=== PATIENT | female | born 1980 | race Caucasian/White ===

== ENCOUNTER → 2020-07-02 08:54 | Outpatient (CLI) | payer OTHER, SELFPAY ==
--- NOTE | ~2020-07-02 | MMUS_ITS ---
EXAMINATION: MM diagnostic sondra BI w jay, US breast BI complete HISTORY: Palpable breast lumps bilateral. TECHNIQUE: Additional 3-D tomosynthesis images of the breasts were performed and synthetic 2-D images were generated. CAD analysis was submitted and interpreted. High resolution bilateral complete breas t ultrasound was performed. COMPARISON: None BREAST PARENCHYMAL COMPOSITION: The breasts are heterogenously dense, which may obscure small masses. FINDINGS: MAMMOGRAPHIC FINDINGS: There are no suspicious masses, calcifications or architectural distortion in either breast to sugges t malignancy. ULTRASOUND: Right breast ultrasound: At 6:00, 5 cm from the nipple, there is a 4 mm cyst. Left breast ultrasound: At 3:00, 4 cm from the nipple, there is there is a 4 mm intramammary lymph no de. At 6:00, 3 cm from the nipple there is a 4 mm cyst. IMPRESSION: 1. No evidence for malignancy in either breast. 2. Routine yearly screening mammogram and regular clinical breast examination are recommended. BI-RADS Category 2: Benign finding(s). Reviewed, dictated and finalized at location A. [employer]ABRICATING IMPRESSION: 1. No evidence for malignancy in either breast. 2. Routine yearly screening mammogram and regular clinical breast examination a re recommended. BI-RADS Category 2: Benign finding(s).
== END ==
PROVIDERS: PCP Internal Medicine; Visit Provider Advanced Practice Midwife
DX: N60.11 Diffuse cystic mastopathy of right breast (principal)
CPT/HCPCS: 76641; 77062; 77066; G0279

== ENCOUNTER → 2021-09-05 09:59 | Outpatient (CLI) | payer OTHER, SELFPAY ==
--- NOTE | ~2021-09-05 | MM_ITS ---
EXAMINATION: MM screening sondra BI w jay HISTORY: Screening mammogram TECHNIQUE: Craniocaudal and mediolateral oblique 3-D tomosynthesis images were obtained and synthetic 2-D images were generated. CAD analysis was submitted and interpreted. COMPARISON: 07/02/2020 bilateral diagnostic mammogram and complete bilateral breast ultrasound examinat ion BREAST PARENCHYMAL COMPOSITION: There are scattered areas of fibroglandular density. FINDINGS: Stable 3.5 mm smaller circumscribed opacities in the upper outer quadrant of the left breas t. Stable right axillary tail circumscribed lymph nodes. Stable circumscribed approximately 5 mm opac ity in the posterior lower right breast on MLO view. There is no evidence of suspicious mass, calcifi cation, or architectural distortion to suggest malignancy in either breast. There has been no suspici ous interval change. IMPRESSION: 1. No mammographic evidence of malignancy. 2. Recommend routine screening mammography in one year. BI-RADS Category 2: Benign finding(s). Reviewed, dictated and finalized at location A.
== END ==
PROVIDERS: PCP Internal Medicine; Visit Provider Obstetrics & Gynecology
DX: Z12.31 Encounter for screening mammogram for malignant neoplasm of breast (principal)
CPT/HCPCS: 77063; 77067

== ENCOUNTER → 2022-10-02 07:09 | Outpatient (CLI) | payer OTHER, SELFPAY ==
--- NOTE | ~2022-10-02 | MM_ITS ---
EXAMINATION: MM screening sondra BI w jay HISTORY: Screening mammogram TECHNIQUE: Craniocaudal and mediolateral oblique 3-D tomosynthesis images were obtained and synthetic 2-D images were generated. CAD analysis was submitted and interpreted. COMPARISON: 09/05/2021 bilateral screening mammogram 07/02/2020 diagnostic bilateral mammogram and bilateral complete breast ultrasound examination BREAST PARENCHYMAL COMPOSITION: There are scattered areas of fibroglandular density. FINDINGS: There is no evidence of suspicious mass, calcification, or architectural distortion to sugg est malignancy in either breast. There has been no suspicious interval change. IMPRESSION: 1. No mammographic evidence of malignancy. 2. Recommend routine screening mammography in one year. BI-RADS Category 1: Negative Reviewed, dictated and finalized at location A.
== END ==
PROVIDERS: PCP Obstetrics & Gynecology; Visit Provider Obstetrics & Gynecology
DX: Z12.31 Encounter for screening mammogram for malignant neoplasm of breast (principal)
CPT/HCPCS: 77063; 77067

== ENCOUNTER 2023-12-21 13:21 | Outpatient (CLI) | payer OTHER, SELFPAY ==
--- NOTE | ~2023-12-21 | MM_ITS ---
EXAMINATION: MM screening sondra BI w jay HISTORY: Screening TECHNIQUE: Craniocaudal and mediolateral oblique 3-D tomosynthesis images were obtained and synthetic 2-D images were generated. CAD analysis was submitted and interpreted. COMPARISON: Comparison to multiple prior studies sequentially, with oldest reviewed study dated 05/2020. BREAST PARENCHYMAL COMPOSITION: Not dense: There are scattered areas of fibroglandular density. FINDINGS: There is no evidence of suspicious mass, calcification, or architectural distortion to sugg est malignancy in either breast. There has been no suspicious interval change. IMPRESSION: 1. No mammographic evidence of malignancy. 2. Recommend routine screening mammography in one year. BI-RADS Category 1: Negative Reviewed, dictated and finalized at location B.
== END 2023-12-21 13:22 ==
LOC: MICIMG 13:25
PROVIDERS: PCP Obstetrics & Gynecology; Visit Provider Obstetrics & Gynecology
DX: Z12.31 Encounter for screening mammogram for malignant neoplasm of breast (principal)
CPT/HCPCS: 77063; 77067